=== PATIENT | male | born 1980 | race Caucasian/White ===

== ENCOUNTER 2020-02-10 12:59 | Observation (INO) | payer OTHER, SELFPAY ==
[2020-02-10 13:55] VITALS: BP 103/62; PULSE 96; RESP 18; TEMP 36.5; O2SAT 97; BMI 301.6
--- NOTE | 2020-02-10 14:08 | ED.ABDPAIN ---
HPI - Abdominal Pain General Chief Complaint: Abdominal Pain Stated Complaint: stomach pain and spine pain Time Seen by Provider: 02/10/20 14:08 Source: patient Mode of arrival: ambulatory Limitations: no limitations History of Present Illness MD elicited complaint: abdominal pain Pertinent past history: other (ran out of oxycodone 2 weeks ago was on high dose for arthritis and L foot injury) Onset (ago): day(s) Pain Consistency: constant Location: RUQ Severity: moderate Quality: sharp Radiation: RUQ Migration to: no migration Exacerbating factors: eating and movement Relieving factors: nothing Associated symptoms: nausea, diarrhea and chills Related Data Allergies Allergy/AdvReac Type Severity Reaction Status Date / Time fish derived [FISH] Allergy Severe ANAPHYLAXIS Verified 02/10/20 13:54 Penicillins [PENICILLINS] Allergy Unknown ANAPHYLAXIS Verified 02/10/20 13:54 Review of Systems Review of Systems Constitutional : No Weight loss, No Fever, + Chills, positive myalgias ENT/Mouth : No sore throat, No Rhinorrhea Eyes: No Swelling, No Redness Cardiovascular : No Chest Pain, No SOB, NoEdema Respiratory : No Cough, No Sputum, No Wheezing Gastrointestinal : Positive Nausea, no Vomiting, positive Diarrhea, positive abdominal Pain, No Hematochezia, No Melena Genitourinary : No Dysuria, No Urinary Frequency, No Hematuria, No Urgency Musculoskeletal : No joint pain, No Myalgias, No Joint Swelling Skin : No Skin Lesions, No rash Neuro : No Weakness, No Numbness, No Dizziness, No Headache Psych : No Anxiety/Panic, No Depression Heme/Lymph: No Bruising, No Lymphadenopathy Endocrine : No Polyuria, No Polydipsia All other systems reviewed and are negative. Physical Exam Vital Signs and I&O and Narrative: Vital Signs and I&O: Vital Signs Temp 97.6 F 02/10/20 16:00 Pulse 84 02/10/20 16:00 Resp 16 02/10/20 16:00 BP 134/64 02/10/20 16:00 Pulse Ox 99 02/10/20 16:00 Intake & Output 02/09/20 02/10/20 02/10/20 18:59 06:59 18:59 Weight 1124 kg Body Mass Index 301.6 Appearance: Alert. Oriented X3. No acute distress. Eyes: Pupils equal, round and reactive to light. ENT: Pharynx dry mm Neck: Normal inspection. mild spasm R trapezius CVS: Normal heart rate and rhythm. Pulses normal. Respiratory: No respiratory distress. Breath sounds normal. Abdomen: Soft and moderate RUQ ttp + Higgins's Skin: Skin warm and dry. Normal skin color. Normal skin turgor. Extremities: No lower extremity edema. No lower extremity edema. Neuro: Oriented X 3. No motor deficit. No sensory deficit. Course Course Course Narrative: + appendicits, added on flagyl cultures and lactic acid had been ordered, infection suspected at 425pm, repeat IVF ordered, plan to admit after discussion with Dr. Jones MDM - Abdominal Pain MDM Narrative Medical decision making narrative: patient c/o 3 days of worsening body pain, neck pain that is chronic and ran out of oxycodone 20mg BID 2 weeks ago didn't touch base with his doctor, also c/o RUQ pain with diarrhea - will need labs, CT scan for GB and pancreas, IV morphine this could be withdrawal, dispo per results and findings Lab Data Result diagrams: 02/10/20 14:40 02/10/20 14:40 Labs: Lab Results 02/10/20 02/10/20 02/10/20 Range/Units 14:40 14:40 14:40 WBC 19.0 H (4.8-10.8) X10*3/uL RBC 5.08 (4.60-5.80) X10*6/uL Hgb 15.1 (14.0-18.0) g/dl Hct 44.9 (42-52) % MCV 88.4 (80-98) fL MCH 29.7 (27.0-33.0) pg MCHC 33.6 (31.0-36.0) g/dl RDW 13.2 (11.0-16.0) % Plt Count 280 (160-400) X10*3/uL MPV 11.2 (9.4-12.4) fL Immature Gran % (Auto) 0.6 H (0.0-0.4) % Neut % (Auto) 71.9 (45-73) % Lymph % (Auto) 17.3 L (20-40) % [place] % (Auto) 7.5 (2-11) % Eos % (Auto) 2.2 (0-4) % Baso % (Auto) 0.5 (0-2) % Neut # (Auto) 13.7 H (2.0-8.3) X10*3/uL Lymph # (Auto) 3.3 (1.2-4.9) X10*3/uL [place] # (Auto) 1.4 H (0.1-1.2) X10*3/uL Eos # (Auto) 0.4 (0.0-0.4) X10*3/uL Baso # (Auto) 0.1 (0.0-0.2) X10*3/uL Abs Immat Gran (auto) 0.12 H (0.00-0.03) X10*3/uL Absolute Nucleated RBC 0.000 (0.0-0.012) X10*3/uL Nucleated RBC % (auto) 0.0 (0.0-0.2) /100WBC Hold Blue Top SEE NOTE Sodium 139 (135-145) mmol/L Potassium 4.2 (3.3-5.1) mmol/l Chloride 104 (96-108) mmol/L Carbon Dioxide 27 (22-29) mmol/L Anion Gap 12 (12-20) BUN 10 (9-16) mg/dL Creatinine 0.89 (0.5-1.4) mg/dL Estim Creat Clear Calc 798.5 Estimated GFR > 60 Random Glucose 92 (60-115) mg/dL Calcium 9.1 (8.4-10.2) mg/dL Magnesium 2.0 (1.6-2.6) mg/dL Total Bilirubin 0.6 (0.0-1.0) mg/dL Direct Bilirubin 0.2 (0.0-0.5) mg/dL AST 18 (5-37) U/L ALT 38 (0-40) U/L Alkaline Phosphatase 95 (39-117) U/L Total Protein 7.0 (6.5-8.0) g/dL Albumin 4.5 (3.5-5.0) g/dL Lipase 7 L (8-78) U/L Critical Care Time Critical Care Time Critical Care Time: Yes Total Critical Care Time: 30 Attestation: I personally attest to this time spent taking care of the patient Discharge Plan Discharge Clinical Impression: Abdominal pain Qualifiers: Abdominal location: periumbilical Qualified Code(s): R10.33 - Periumbilical pain Acute appendicitis Qualifiers: Acute appendicitis type: other Qualified Code(s): K35.890 - Other acute appendicitis without perforation or gangrene Leukocytosis Qualifiers: Leukocytosis type: other Qualified Code(s): D72.828 - Other elevated white blood cell count PMFSH Past Medical History Medical History Arthritis Chronic pain Hyperlipidemia Hypertension Sleep disorder Tachycardia Social History Social History (Updated 02/10/20 @ 14:21 by Jhoana Morales DO) Smoking Status: Never smoker Use of substances other than those prescribed or required for medical reasons: No Advance Directives: No Advance Directives Information Provided: Yes
--- NOTE | 2020-02-10 14:18 | CT_ITS ---
EXAMINATION: CT ABDOMEN AND PELVIS WITH CONTRAST CLINICAL INFORMATION: Right upper quadrant pain COMPARISON: None TECHNIQUE: Multidetector volumetric images were obtained from the superior aspect of the liver through the pubic symphysis following administration 85 mL of Omnipaque 350 intravenous contrast. Sagittal and coronal reformatted images were obtained on the technologist's workstation. Oral contrast: No This CT examination was performed using dose optimization techniques as appropriate, variously including the following: *Automated exposure control *Adjustment of mA and/or kV according to patient size (this includes techniques or standardized protocols for targeted exams where dose is matched to indication/reason for exam; i.e. extremities or head) *Use of iterative reconstruction technique DLP: 819 mGy-cm FINDINGS: LUNG BASES: The visualized lung bases are unremarkable. LIVER, GALLBLADDER, AND BILIARY TREE: Diffuse low attenuation of liver parenchyma due to fatty change. No focal liver lesion or intrahepatic bile duct dilatation. The gallbladder is unremarkable with no evidence of radiopaque gallstones, gallbladder wall thickening, or obvious pericholecystic inflammatory changes. PANCREAS: Unremarkable. SPLEEN: Unremarkable. ADRENAL GLANDS: Unremarkable. KIDNEYS AND URETERS: Kidneys are normal in size and contour with normal cortical thickness. Normal enhancement of the cortex. No renal or ureteral calculus. There is no hydronephrosis BLADDER: Unremarkable. GASTROINTESTINAL TRACT: There is focal edema and fluid in the right lower quadrant adjacent to cecum. The appendix is dilated and edematous. Appendix measures 1 cm in diameter. This is consistent with appendicitis. There is no perforation or abscess however. There is no free air. No dilated bowel loop. Scattered stool in the colon. The small bowel loops are normal. ABDOMINAL WALL: No significant hernia is appreciated. LYMPH NODES: Normal. VASCULAR: Unremarkable. PELVIC VISCERA: Unremarkable. OSSEOUS STRUCTURES: Unremarkable. IMPRESSION: Appendicitis.
[2020-02-10] MEDS: ondansetron HCL 4 MG/2 ML VIAL IVPUSH (14:44)
[2020-02-10] MEDS: Morphine Sulfate 4 MG/ML CARTRIDGE IVPUSH (14:44)
[2020-02-10] MEDS: 0.9 % Sodium Chloride 1,000 ML 999 ML IVCONT ×2 (14:44→17:08)
[2020-02-10 14:51] LABS: MANUAL DIFF FLAG NO
[2020-02-10 14:54] LABS: Basophils Absolute Auto 0.1 X10*3/uL (0.0-0.2); Basophils Percent Auto 0.5 % (0-2); Eosinophils Absolute Auto 0.4 X10*3/uL (0.0-0.4); Eosinophils Percent Auto 2.2 % (0-4); Hematocrit 44.9 % (42-52); Hemoglobin 15.1 g/dl (14.0-18.0); Imm Gran Abs Auto 0.12 X10*3/uL (0.00-0.03); Imm Gran Pct Auto 0.6 % (0.0-0.4); Lymphocytes Absolute Auto 3.3 X10*3/uL (1.2-4.9); Lymphocytes Percent Auto 17.3 % (20-40); Mean Corpuscular HGB Conc 33.6 g/dl (31.0-36.0); Mean Corpuscular Hemoglobin 29.7 pg (27.0-33.0); Mean Corpuscular Volume 88.4 fL (80-98); Mean Platelet Volume 11.2 fL (9.4-12.4); Monocytes Absolute Auto 1.4 X10*3/uL (0.1-1.2); Monocytes Percent Auto 7.5 % (2-11); Neutrophils Absolute Auto 13.7 X10*3/uL (2.0-8.3); Neutrophils Percent Auto 71.9 % (45-73); Platelet Count 280 X10*3/uL (160-400); Red Blood Count 5.08 X10*6/uL (4.60-5.80); Red Cell Distribution Width 13.2 % (11.0-16.0)
[2020-02-10 15:26] LABS: Alanine Aminotransferase 38 U/L (0-40); Albumin Level 4.5 g/dL (3.5-5.0); Alkaline Phosphatase 95 U/L (39-117); Anion Gap 12 (12-20); Aspartate Amino Transferase 18 U/L (5-37); Bilirubin Direct 0.2 mg/dL (0.0-0.5); Bilirubin Total 0.6 mg/dL (0.0-1.0); Blood Urea Nitrogen 10 mg/dL (9-16); Calcium 9.1 mg/dL (8.4-10.2); Carbon Dioxide 27 mmol/L (22-29); Chloride 104 mmol/L (96-108); Creatinine Clr Calc Pharmacy 798.5; Estimated Glomerular Filt Rate > 60; Glucose Random 92 mg/dL (60-115); Lipase 7 U/L (8-78); Potassium 4.2 mmol/l (3.3-5.1); Sodium 139 mmol/L (135-145)
[2020-02-10 15:33] VITALS: BP 128/74; PULSE 82; RESP 16; O2SAT 98
[2020-02-10] MEDS: iohexoL 350 MG/ML 100 ML INFUS..BTL IV (15:56)
[2020-02-10 16:00] VITALS: BP 134/64; PULSE 84; RESP 16; TEMP 36.4; O2SAT 99
--- NOTE | 2020-02-10 17:05 | PM.HPGS ---
History of Present Illness History of Present Illness Chief complaint: stomach pain and spine pain Narrative: Quinn Valerio is a 39 year old male Presenting with a three day history of abdominal pain beginning in the back and epigastrium and gradually radiating to the right upper quadrant and right lower quadrant. The pain increased in severity and he subsequently presented to the emergency department for further evaluation. He denies a previous history of similar pain. He reports nausea without vomiting. He also felt hot but is unsure if he had a fever. He denies chills. In the emergency department he was noted to be tender in the right upper quadrant and right lower quadrant. Laboratories revealed a markedly elevated WBC. CT of the abdomen and pelvis revealed a thickened appendix suggestive of acute appendicitis. He is admitted to the surgical service for further management. He reports a previous history of tachycardia with bradycardia with sleep. He was previously told he should not undergo anesthesia because of this bradycardia while as sleep. Review of Systems Constitutional: Constitutional: Denies chills, Denies fever(s) and Denies poor appetite Cardiovascular: Cardiovascular: Denies chest pain, Denies rapid heart rate, Denies palpitations and Denies slow heart rate Respiratory: Respiratory: Denies chest congestion, Denies cough, Denies pain on inspiration and Denies wheezing Gastrointestinal: Gastrointestinal: Denies no additional gastrointestinal complaints Musculoskeletal: Musculoskeletal: Denies no additional musculoskeletal complaints Neurologic: Denies confusion Psychiatric: Psychiatric: Denies anxiety, Denies confusion and Denies depression Endocrine: Endocrine: Denies palpitations Hematologic/Lymphatic: Hematologic/Lymphatic: Denies easy bleeding, Denies easy bruising and Denies lymphadenopathy Allergic/Immunologic: Allergic/Immunologic: Denies wheezing PMFSH Past Medical History Medical History Arthritis Chronic pain Hyperlipidemia Hypertension Sleep disorder Tachycardia Social History Social History Smoking Status: Never smoker Use of substances other than those prescribed or required for medical reasons: No Advance Directives: No Advance Directives Information Provided: Yes Meds Allergies Allergy/AdvReac Type Severity Reaction Status Date / Time fish derived [FISH] Allergy Severe ANAPHYLAXIS Verified 02/10/20 13:54 Penicillins [PENICILLINS] Allergy Unknown ANAPHYLAXIS Verified 02/10/20 13:54 Home Medications Medication Instructions Recorded Confirmed Type allopurinol 100 mg PO DAILY 02/10/20 02/10/20 History atorvastatin 1 tab PO BEDTIME 02/10/20 02/10/20 History citalopram 1 tab PO DAILY 02/10/20 02/10/20 History Physical Exam Vital Signs and I&O and Narrative: Vital Signs and I&O: Vital Signs Temp 97.6 F 02/10/20 16:00 Pulse 84 02/10/20 16:00 Resp 16 02/10/20 16:00 BP 134/64 02/10/20 16:00 Pulse Ox 99 02/10/20 16:00 Intake & Output 02/09/20 02/10/20 02/10/20 18:59 06:59 18:59 Weight 2477 lb 15.931 oz Body Mass Index 301.6 Const: General: cooperative, healthy appearing and acute distress; No confusion Orientation/consciousness: No confusion Eyes: Sclerae: sclerae normal EOM: EOMs intact bilaterally Resp: Effort & Inspection: normal respiratory effort Auscultation: clear to auscultation bilaterally Cardio: Jugular venous distension: no JVD Rate: regular rate Rhythm: regular rhythm Heart sounds: S1 normal heart sound present and S2 normal heart sound present GI: Inspection: Yes normal to inspection Palpation (GI): Soft to palpation, Tenderness to palpation present (GI) in the RLQ and in the RUQ, no guarding and not rigid Percussion: Yes normal to percussion Auscultation: normal bowel sounds Rectal Exam - Male: Yes deferred Abdomen image: 1. site of tenderness Skin: General skin exam: no rashes or lesions noted and turgor normal Neuro: General: No confusion Gait exam (Neuro): Normal gait present Extrem: General: Yes normal to inspection, Yes full ROM and Yes no pedal edema Psych: Speech and movement: Normal speech and movement present Affect: normal affect Results Results Labs: Short CBC 02/10/20 Range/Units 14:40 WBC 19.0 H (4.8-10.8) X10*3/uL Hgb 15.1 (14.0-18.0) g/dl Hct 44.9 (42-52) % Plt Count 280 (160-400) X10*3/uL BMP 02/10/20 14:40 Sodium 139 Potassium 4.2 Chloride 104 Carbon Dioxide 27 BUN 10 Creatinine 0.89 Calcium 9.1 Liver Function 02/10/20 Range/Units 14:40 Total Bilirubin 0.6 (0.0-1.0) mg/dL Direct Bilirubin 0.2 (0.0-0.5) mg/dL AST 18 (5-37) U/L ALT 38 (0-40) U/L Alkaline Phosphatase 95 (39-117) U/L Albumin 4.5 (3.5-5.0) g/dL Assessment and Plan (1) Acute appendicitis: Qualifiers: Acute appendicitis type: other Qualified Code(s): K35.890 - Other acute appendicitis without perforation or gangrene Status: Acute Patient presents with complaints of abdominal pain in the right upper quadrant right lower quadrant of several days duration. On examination he is noted to be tender over McBurney's point. Abdomen is otherwise soft and nondistended. He does not have peritoneal signs. WBC is markedly elevated and CT of the abdomen confirms acute appendicitis. I discussed laparoscopic appendectomy verses treatment with antibiotics, with surgery if there is no improvement in his abdominal pain tomorrow. Given his previous history of tachycardia/bradycardia and the previous recommendations from his portable sawyer to avoid anesthesia I suggested try treating the appendicitis with antibiotics. He is agreeable to this but understands that if his pain persists surgery may be required.
[2020-02-10 17:07] LABS: Glucose Urine UA NEG (NEG); Leukocyte Esterase Urine NEG (NEG); Nitrite Urine NEG (NEG); PH 5.5 (5.0-8.0); Specific Gravity - Urine <= 1.005 (1.005-1.025); Urine Blood TRACE (NEG); Urine Ketones NEG (NEG); Urine Protein NEG (NEG-TRACE)
[2020-02-10] MEDS: levoFLOXacin/D5W 500 MG/100 ML PIGGYBACK 100 MG IV (17:08)
[2020-02-10 17:25] LABS: Appearance Urine CLEAR; Color Urine YELLOW
--- NOTE | 2020-02-10 17:36 | PC.NURSE ---
PT ALERT AND ORIENTED X4. SKIN WPD. RESPIRATIONS EVEN AND NON LABORED. OFFERED SECOND DOSE MORPHINE, BUT DECLINED STATING ABD PAIN IS MANAGEABLE AT THIS TIME. DENIES NAUSEA. NS AND 1ST ABX INFUSING. PLAN FOR APPEDNECTOMY DELAYED D/T HISTORY OF BRADYCARDIA, PER SURGERY. PT NOW MEDICAL ADMISSION. AWAITING BED ASSIGNMENT.
[2020-02-10 17:55] LABS: RBC Urine 0-2 /HPF (0); Squamous Epithelial Cell Urine TRACE /LPF; WBC Urine 0 /HPF (0-4)
[2020-02-10 19:02] VITALS: BP 129/81; PULSE 73; RESP 16; TEMP 37.1; O2SAT 99
[2020-02-10] MEDS: metroNIDAZOLE/NS 500 MG/100 ML PIGGYBACK 100 MG IV (19:08)
[2020-02-10 20:31] VITALS: BP 106/43; PULSE 73; RESP 15; O2SAT 98
[2020-02-10 22:00] VITALS: BP 120/83; PULSE 83; RESP 15; O2SAT 98
--- NOTE | 2020-02-10 22:53 | PC.NURSE ---
PATIENT AWAITING EVALUATION BY HOSITALIST
[2020-02-11] VITALS (7 sets, daily range): BP systolic 113–131; BP diastolic 60–77; PULSE 73–91; RESP 17–20; TEMP 36.3–37.3; O2SAT 95–99; BMI 30.2
[2020-02-11] MEDS: Atorvastatin Calcium 20 MG TABLET PO ×2 (00:54→20:09)
[2020-02-11] MEDS: Dextrose 5 % and Lactated Ring 1,000 ML 125 ML IVCONT ×3 (01:07→17:06)
[2020-02-11] MEDS: metroNIDAZOLE/NS 500 MG/100 ML PIGGYBACK 100 MG IV ×3 (03:24→18:17)
[2020-02-11 06:47] LABS: MANUAL DIFF FLAG NO
[2020-02-11 06:57] LABS: Basophils Absolute Auto 0.1 X10*3/uL (0.0-0.2); Basophils Percent Auto 0.4 % (0-2); Eosinophils Absolute Auto 0.4 X10*3/uL (0.0-0.4); Eosinophils Percent Auto 3.4 % (0-4); Hematocrit 41.8 % (42-52); Hemoglobin 13.6 g/dl (14.0-18.0); Imm Gran Abs Auto 0.11 X10*3/uL (0.00-0.03); Imm Gran Pct Auto 0.9 % (0.0-0.4); Lymphocytes Absolute Auto 2.7 X10*3/uL (1.2-4.9); Lymphocytes Percent Auto 22.7 % (20-40); Mean Corpuscular HGB Conc 32.5 g/dl (31.0-36.0); Mean Corpuscular Hemoglobin 29.4 pg (27.0-33.0); Mean Corpuscular Volume 90.3 fL (80-98); Mean Platelet Volume 11.3 fL (9.4-12.4); Monocytes Percent Auto 8.5 % (2-11); Neutrophils Absolute Auto 7.6 X10*3/uL (2.0-8.3); Neutrophils Percent Auto 64.1 % (45-73); Platelet Count 234 X10*3/uL (160-400); Red Blood Count 4.63 X10*6/uL (4.60-5.80); Red Cell Distribution Width 13.2 % (11.0-16.0); White Blood Count 11.9 X10*3/uL (4.8-10.8)
[2020-02-11] MEDS: allopurinoL 100 MG TABLET PO (09:12)
[2020-02-11] MEDS: Escitalopram Oxalate 10 MG TABLET PO (09:13)
--- NOTE | 2020-02-11 12:18 | PM.PNGS ---
Subjective Subjective Patient reports: feels better Interval history: Patient reports feeling very hungry and denying abdominal pain. He feels much improved this morning and denies fever or chills. Physical Exam Vital Signs and I&O and Narrative: Vital Signs and I&O: Vital Signs Temp 98.1 F 02/11/20 11:56 Pulse 88 02/11/20 11:56 Resp 18 02/11/20 11:56 BP 119/60 02/11/20 11:56 Pulse Ox 98 02/11/20 11:56 Intake & Output 02/10/20 02/11/20 02/11/20 18:59 06:59 18:59 Intake Total 2100 / 2300 200 / 2300 1098.333 / 1098.33 3 Balance 2100 / 2300 200 / 2300 1098.333 / 1098.33 3 Weight 2477 lb 15.931 oz 247 lb 15.933 oz Intake: Intake, IV Amoun t 2100 / 2300 200 / 2300 1098.333 / 1098.33 3 levoFLOXacin/D 5W 500 mg In 100 100 / 100 ml @ 100 mls/h r IV ONCE ONE Rx# :[id number] metroNIDAZOLE/ NS 500 mg In 100 200 / 200 98.333 / 98.333 ml @ 100 mls/h r IV Q8H [facility] Rx#: [id number] 0.9 % Sodium C hloride 1,000 ml 2000 / 2000 @ 999 mls/hr I VCONT .Q1H1M [facility] Rx#:[id number] Dextrose 5 % a nd Lactated Ring 1000 / 1000 1,000 ml @ 125 mls/hr IVCONT . Q8H [facility] Rx#:[id number] Other: Number of Unmeas ured Voids 2 Body Mass Index 301.6 Const: Other: Well-nourished well-developed in no acute distress Resp: Other: breathing comfortably on room air, no respiratory distress GI: Other: abdomen is soft and nondistended, nontender to deep palpation especially in the right lower quadrant, no rebound, no rigidity, no guarding, no palpable mass. Exam is much improved compared to yesterday. Skin: Other: Warm and dry, no rash Extrem: Other: no edema Progress Note: A&P Assessment and plan (1) Acute appendicitis: Status: Acute Assessment and Plan: patient presents with acute appendicitis and history of tachycardia /bradycardia. Because of this decision was made to treat patient with antibiotics. This morning the patient feels much improved with minimal to no abdominal pain. His white blood cell count is now improved to 11. he reports being very hungry. Plan: Continue IV antibiotics for another 24 hours and then potentially switch to oral antibiotics and discharge, start regular diet today, resume home medications. Will hold off on surgery as long as the patient is improving. The patient understands and agrees with the plan Fall Risk Details Current Medications: Current Medications Generic Name Dose Route Start Last Admin Trade Name Freq PRN Reason Stop Dose Admin Acetaminophen 650 mg 02/11/20 07:27 Acetaminophen 325 Mg Tablet PO Q6H PRN Pain and Fever Allopurinol 100 mg 02/11/20 09:00 02/11/20 09:12 Allopurinol 100 Mg Tablet PO 100 mg DAILY [facility] Administration Atorvastatin Calcium 20 mg 02/11/20 00:14 02/11/20 00:54 Atorvastatin Calcium 20 Mg Tablet PO 20 mg BEDTIME [facility] Administration Escitalopram Oxalate 10 mg 02/11/20 09:00 02/11/20 09:13 Escitalopram Oxalate 10 Mg Tablet PO 10 mg DAILY [facility] Administration Levofloxacin 500 mg in 100 mls @ 100 mls/hr 02/11/20 17:00 Levaquin IV Q24H [facility] Metronidazole 500 mg in 100 mls @ 100 mls/hr 02/11/20 03:00 02/11/20 11:53 Flagyl IV Infused Q8H [facility] Infusion Dextrose/Lactated Ringer's 1,000 mls @ 125 mls/hr 02/11/20 00:14 02/11/20 09:14 D5lr IVCONT 125 mls/hr .Q8H [facility] Administration Morphine Sulfate 4 mg 02/11/20 07:27 Morphine Sulfate 4 Mg/Ml Cartridge IVPUSH Q3H PRN Pain, Severe (Pain Scale 7-10) Ondansetron HCl 4 mg 02/11/20 07:27 Ondansetron Hcl 4 Mg/2 Ml Vial IVPUSH Q8H PRN Nausea Oxycodone HCl 5 mg 02/11/20 07:30 Oxycodone Hcl Immed Release 5 Mg Tablet PO Q4H PRN Pain, Moderate (Pain Scale 4-6 Pharmacy Consult 1 each 02/10/20 16:28 Consult Rx Perform Med Rec MISCELLANE ONCE PRN Consult order Time Spent With Patient Time: Total time spent is greater than 50% in coordination of care (as documented) at patient's floor/unit and/or counseling patient:15 Time with patient: 15 - 24 minutes
--- NOTE | 2020-02-11 13:34 | MHC.CM.PN ---
Lives at home with girlfriend and 3 year old daughter, independent with everything, no services, no DME, states has HCP, copy requested, PCP on file accurate. Plan is home via GF. CM to follow.
[2020-02-11] MEDS: levoFLOXacin/D5W 500 MG/100 ML PIGGYBACK 100 MG IV (16:52)
--- NOTE | 2020-02-11 23:00 | PC.NURSE ---
pt is refusing high fall risk status. Pt is stating that he is not in a detention. Pt is being monitored closely, but is moving out of bed freely, mostly to bathroom
[2020-02-12] VITALS: BP 131/70; PULSE 70; RESP 16; TEMP 36.6; O2SAT 98
[2020-02-12] MEDS: metroNIDAZOLE/NS 500 MG/100 ML PIGGYBACK 100 MG IV (02:20)
[2020-02-12] MEDS: Dextrose 5 % and Lactated Ring 1,000 ML 125 ML IVCONT (02:20)
[2020-02-12 03:37] VITALS: BP 128/82; PULSE 69; RESP 20; TEMP 35.8; O2SAT 97
[2020-02-12 06:55] LABS: Hematocrit 42.4 % (42-52); Hemoglobin 13.9 g/dl (14.0-18.0); Mean Corpuscular HGB Conc 32.8 g/dl (31.0-36.0); Mean Corpuscular Hemoglobin 29.3 pg (27.0-33.0); Mean Corpuscular Volume 89.5 fL (80-98); Mean Platelet Volume 11.1 fL (9.4-12.4); Platelet Count 250 X10*3/uL (160-400); Red Blood Count 4.74 X10*6/uL (4.60-5.80); Red Cell Distribution Width 12.6 % (11.0-16.0); White Blood Count 10.7 X10*3/uL (4.8-10.8)
[2020-02-12 07:34] VITALS: BP 133/73; PULSE 63; RESP 19; TEMP 36.2; O2SAT 98
--- NOTE | 2020-02-12 07:37 | P.PNGS_ITS ---
Subjective Subjective Interval history: Feels well this morning. Denies any abdominal pain. Tolerating solid diet. Denies nausea, vomiting. Wants to go home. <Ashia George PA-C - Last Filed: 02/12/20 07:44> Physical Exam Vital Signs and I&O and Narrative: Vital Signs and I&O: Vital Signs Temp 97.1 F 02/12/20 07:34 Pulse 63 02/12/20 07:34 Resp 19 02/12/20 07:34 BP 133/73 02/12/20 07:34 Pulse Ox 98 02/12/20 07:34 Intake & Output 02/11/20 02/12/20 02/12/20 18:59 06:59 18:59 Intake Total 3501.666 / 5181.66 6 1680 / 5181.666 Output Total Balance 3493.666 / 5165.66 6 1672 / 5165.666 Urine Output (Aver age ml/kg/hr) 0.00 0.01 Weight 247 lb 15.933 oz Intake: Intake, Oral [place] unt 1320 / 1800 480 / 1800 Intake, IV Amoun t 2181.666 / 3381.66 6 1200 / 3381.666 levoFLOXacin/D 5W 500 mg In 100 100 / 100 ml @ 100 mls/h r IV Q24H [facility] Rx# :[id number] metroNIDAZOLE/ NS 500 mg In 100 98.333 / 298.333 200 / 298.333 ml @ 100 mls/h r IV Q8H [facility] Rx#: [id number] Dextrose 5 % a nd Lactated Ring 1983.333 / 2983.33 3 1000 / 2983.333 1,000 ml @ 125 mls/hr IVCONT . Q8H [facility] Rx#:[id number] Output: Output, Urine Am ount 6 14 8 14 Output, Stool Am ount 2 / 2 Other: Meal Refused No NPO No Breakfast % Eate n 100% Lunch % Eaten 100% Dinner % Eaten 100% Number of Unmeas ured Voids 1 Number of Bowel Movements 2 3 Urine Bathroom Bathroom Urine Color Yellow Yellow Stool Bathroom Stool Color Brown Stool Consistenc y Semi Formed Body Mass Index 30.2 <Ashia George PA-C - Last Filed: 02/12/20 07:44> Const: General: comfortable, no acute distress and alert <Ashia Friashalima IFEOMA Gu Last Filed: 02/12/20 07:44> Orientation/consciousness: patient oriented x3 <Ashia FriasdeauSHANIKAArely Gu Last Filed: 02/12/20 07:44> Eyes: Sclerae: sclerae normal <Ashia FriasSHANIKA vargheseArely Gu Last Filed: 02/12/20 07:44> Resp: Effort & Inspection: normal respiratory effort <Ashia Friasdeau IFEOMA Gu Last Filed: 02/12/20 07:44> Cardio: Rate: regular rate <Ashia Friasdeau IFEOMA Gu Last Filed: 02/12/20 07:44> GI: Inspection: Yes normal to inspection and No distended <Ashia Friashalima IFEOMA Gu Last Filed: 02/12/20 07:44> Palpation (GI): Soft to palpation, nontender, no guarding and No Rebound ten derness present <Ashia Friasdeau IFEOMA Gu Last Filed: 02/12/20 07:44> Auscultation: normal bowel sounds <Ashia Friashalima IFEOMA Gu Last Filed: 02/12/20 07:44> Skin: General skin exam: no rashes or lesions noted <Ashia Ortegajaron IFEOMA Gu Last Filed: 02/12/20 07:44> Neuro: General: patient oriented x3 <Ashia OrtegaSHANIKA salmeronArely Gu Last Filed: 02/12/20 07:44> Extrem: General: Yes no clubbing, cyanosis or edema <Ashia OrtegaSHANIKA salmeronArely Gu Last Filed: 02/12/20 07:44> Progress Note: A&P Assessment and plan (1) Acute appendicitis: Status: Acute <Ashia OrtegaSHANIKA salmeronArely Gu Last Filed: 02/12/20 07:44> Assessment and Plan: Improved with nonoperative management. He is clinically appearing well, afebrile with a benign abdominal exam, soft and completely nontender. He is stable and feels ready for discharge. Will d/c to home today on PO course of levaquin/flagyl. F/u in office with Dr. Jones. Instructed to call the office/return to the ED if develops recurrent abd pain, fevers, nausea/vomiting. The patient understands and agrees with the plan. <Ashia George PA-C - Last Filed: 02/12/20 07:44> Fall Risk Details Current Medications: Current Medications Generic Name Dose Route Start Last Admin Trade Name Freq PRN Reason Stop Dose Admin Acetaminophen 650 mg 02/11/20 07:27 Acetaminophen 325 Mg Tablet PO Q6H PRN Pain and Fever Allopurinol 100 mg 02/11/20 09:00 02/11/20 09:12 Allopurinol 100 Mg Tablet PO 100 mg DAILY [facility] Administration Atorvastatin Calcium 20 mg 02/11/20 00:14 02/11/20 20:09 Atorvastatin Calcium 20 Mg Tablet PO 20 mg BEDTIME [facility] Administration Escitalopram Oxalate 10 mg 02/11/20 09:00 02/11/20 09:13 Escitalopram Oxalate 10 Mg Tablet PO 10 mg DAILY [facility] Administration Levofloxacin 500 mg in 100 mls @ 100 mls/hr 02/11/20 17:00 02/11/20 18:23 Levaquin IV Infused Q24H [facility] Infusion Metronidazole 500 mg in 100 mls @ 100 mls/hr 02/11/20 03:00 02/12/20 03:39 Flagyl IV Infused Q8H [facility] Infusion Dextrose/Lactated Ringer's 1,000 mls @ 125 mls/hr 02/11/20 00:14 02/12/20 02:20 D5lr IVCONT 125 mls/hr .Q8H [facility] Administration Morphine Sulfate 4 mg 02/11/20 07:27 Morphine Sulfate 4 Mg/Ml Cartridge IVPUSH Q3H PRN Pain, Severe (Pain Scale 7-10) Ondansetron HCl 4 mg 02/11/20 07:27 Ondansetron Hcl 4 Mg/2 Ml Vial IVPUSH Q8H PRN Nausea Oxycodone HCl 5 mg 02/11/20 07:30 Oxycodone Hcl Immed Release 5 Mg Tablet PO Q4H PRN Pain, Moderate (Pain Scale 4-6 Pharmacy Consult 1 each 02/10/20 16:28 Consult Rx Perform Med Rec MISCELLANE ONCE PRN Consult order <Ashia George PA-C - Last Filed: 02/12/20 07:44> Time Spent With Patient Time: Total time spent is greater than 50% in coordination of care (as documented) at patient's floor/unit and/or counseling patient: <Ashia George PA-C - Last Filed: 02/12/20 07:44> Time with patient: 15 - 24 minutes <Ashia George PA-C - Last Filed: 02/12/20 07:44>
[2020-02-12] MEDS: Escitalopram Oxalate 10 MG TABLET PO (07:55)
[2020-02-12] MEDS: allopurinoL 100 MG TABLET PO (07:55)
--- NOTE | 2020-02-12 08:41 | MHC.CM.PN ---
PATIENT IS DISCHARGED HOME WITH NO SERVICES. RN AWARE OF PLAN. PATIENT HAS TRANSPORT
--- NOTE | 2020-02-12 09:03 | P.DS_ITS ---
DS: Providers Provider Date of admission: 02/10/20 23:54 Primary care physician: Favian Lomeli MD DS: Diagnosis Discharge Diagnosis (1) Acute appendicitis: Status: Acute DS: Summary Hospital Course Hospital Course: Brief HPI: Quinn Valerio is a 39 year old male presenting with a three day history of abdominal pain beginning in the back and epigastrium and gradually radiating to the right upper quadrant and right lower quadrant. The pain increased in severity and he subsequently presented to the emergency department for further evaluation. He denies a previous history of similar pain. He reports nausea without vomiting. He also felt hot but is unsure if he had a fever. He denies chills. In the emergency department he was noted to be tender in the right upper quadrant and right lower quadrant. Laboratories revealed a markedly elevated WBC. CT of the abdomen and pelvis revealed a thickened appendix suggestive of acute appendicitis. He reports a previous history of tachycardia with bradycardia with sleep. He was previously told he should not undergo anesthesia because of this. He is admitted to the surgical service for further management. Given the patient's history, nonoperative management was attempted overnight. He was made NPO, started on IV levaquin and flagyl, IVF. If no improvement, surgical intervention would be required. The following morning, the patient felt improved and was asymptomatic. His WBC had significantly downtrended. His abdomen was benign with minimal tenderness. He was afebrile. He was advanced to a clear liquid and then regular diet. He continued to feel well and remained non toxic appearing the following day. His WBC normalized. His abdomen remained very benign and was completely nontender. He felt ready for discharge. He was discharged to home on 02/12/20 in stable condition on a PO course of levaquin/flagyl. He is to follow up with Dr. Jones in office. Status at Discharge Functional status at discharge: independent ambulation Overall status at discharge: patient is back to baseline Time Spent with Patient Time attestation: Total time spent providing and/or coordinating discharge services: Time spent: Less than 30 minutes Physical Exam Vital Signs and I&O and Narrative: Vital Signs and I&O: Vital Signs Temp 97.1 F 02/12/20 07:34 Pulse 63 02/12/20 07:34 Resp 19 02/12/20 07:34 BP 133/73 02/12/20 07:34 Pulse Ox 98 02/12/20 07:34 Intake & Output 02/11/20 02/12/20 02/12/20 18:59 06:59 18:59 Intake Total 3501.666 / 5181.66 6 1680 / 5181.666 Output Total Balance 3493.666 / 5165.66 6 1672 / 5165.666 Urine Output (Aver age ml/kg/hr) 0.00 0.01 Weight 247 lb 15.933 oz Intake: Intake, Oral [place] unt 1320 / 1800 480 / 1800 Intake, IV Amoun t 2181.666 / 3381.66 6 1200 / 3381.666 levoFLOXacin/D 5W 500 mg In 100 100 / 100 ml @ 100 mls/h r IV Q24H [facility] Rx# :[id number] metroNIDAZOLE/ NS 500 mg In 100 98.333 / 298.333 200 / 298.333 ml @ 100 mls/h r IV Q8H [facility] Rx#: [id number] Dextrose 5 % a nd Lactated Ring 1983.333 / 2983.33 3 1000 / 2983.333 1,000 ml @ 125 mls/hr IVCONT . Q8H [facility] Rx#:[id number] Output: Output, Urine Am ount Output, Stool Am ount 2 / 2 Other: Meal Refused No NPO No Breakfast % Eate n 100% Lunch % Eaten 100% Dinner % Eaten 100% Number of Unmeas ured Voids 1 Number of Bowel Movements 2 3 Urine Bathroom Bathroom Urine Color Yellow Yellow Stool Bathroom Stool Color Brown Stool Consistenc y Semi Formed Body Mass Index 30.2 Const: General: healthy appearing, comfortable, no acute distress and alert Orientation/consciousness: patient oriented x3 Eyes: Sclerae: sclerae normal Resp: Effort & Inspection: normal respiratory effort Cardio: Rate: regular rate GI: Inspection: Yes normal to inspection and No distended Palpation (GI): Soft to palpation, nontender, no guarding, not rigid and No Rebound tenderness present Skin: General skin exam: no rashes or lesions noted Neuro: General: patient oriented x3 Extrem: General: Yes no clubbing, cyanosis or edema DS: Data Data Completed and Pending Labs on day of discharge: Labs from last 24 hours 02/12/20 06:23 WBC 10.7 RBC 4.74 Hgb 13.9 L Hct 42.4 MCV 89.5 MCH 29.3 MCHC 32.8 RDW 12.6 Plt Count 250 MPV 11.1 Absolute Nucleated RBC 0.000 Nucleated RBC % (auto) 0.0 Preliminary micro results at discharge 02/10/20 16:23 Blood Culture - Preliminary Blood - Venous No growth after 24 hours. 02/10/20 16:19 Blood Culture - Preliminary Blood - Venous No growth after 24 hours. Discharge Plan Discharge Patient Disposition: Home, Self-Care Referrals: Jae Jones MD [Physician] - 1 Week Favian Lomeli MD [Primary Care Provider] - Discharge Medications: New levofloxacin 500 mg tablet 500 mg PO Q24H Qty: 9 RF: 0 metronidazole [Flagyl] 500 mg tablet 500 mg PO Q12H Qty: 18 RF: 0 Continued atorvastatin 20 mg tablet 20 mg PO BEDTIME RF: 0 allopurinol 100 mg tablet 100 mg PO DAILY RF: 0 citalopram 20 mg tablet 20 mg PO DAILY RF: 0 metoprolol succinate 25 mg Tablet Extended Release 24 Hr 25 mg PO DAILY RF: 0 oxycodone 10 mg Tablet 10 mg PO DAILY PRN (Reason: Pain) RF: 0 Discharge Orders: Discharge Order (Routine); Ordered 02/12/20 Ordered By: Ashia George Diet: advance to your usual diet Activity on Discharge: As tolerated Patient Instructions: Metronidazole (By mouth), Levofloxacin (By mouth) Discharge Date/Time: 02/12/20 09:05 Activity Restrictions/Additional Instructions: Call the office or go back to the ED if you develop recurrent abdominal pain, nausea/vomiting, fevers. Visit Report Forms: Patient Portal Discharge page Care Plan Goals: Return to baseline health Health Concerns: ACute appendicitis Plan of Treatment: IV antibiotics, pain control
== END 2020-02-12 09:05 | disposition home or self-care (01) ==
LOC: HO.ED 02-11 00:01 → HO.S3 02-11 00:03
PROVIDERS: Admitting Provider Surgery; Emergency Provider Emergency Medicine; PCP Internal Medicine; Visit Provider Surgery
DX: K35.890 Other acute appendicitis without perforation or gangrene (principal); R10.11 Right upper quadrant pain; R00.0 Tachycardia, unspecified; R00.1 Bradycardia, unspecified; M54.9 Dorsalgia, unspecified; R11.0 Nausea; R19.7 Diarrhea, unspecified; D72.828 Other elevated white blood cell count; E78.5 Hyperlipidemia, unspecified; I10 Essential (primary) hypertension; G47.9 Sleep disorder, unspecified; M19.90 Unspecified osteoarthritis, unspecified site; Z88.0 Allergy status to penicillin; Z91.013 Allergy to seafood; Z79.899 Other long term (current) drug therapy
CPT/HCPCS: 36415; 74177; 80048; 80076; 81001; 81003; 83605; 83690; 83735; 85025; 85027; 87040; 96361; 96365; 96367; 96375; 96376; 99218; 99284; 99285; 99291; J0330; J1100; J1956; J2250; J2270; J2405; J3010

== ENCOUNTER 2020-08-02 15:24 | Outpatient (REF) | payer OTHER, SELFPAY ==
[2020-08-03 11:15] LABS: SARS COV2 PCR INHOUSE NEGATIVE (Negative)
== END 2020-08-02 15:25 | disposition home or self-care (01) ==
LOC: HO.LAB 15:24
PROVIDERS: Visit Provider Internal Medicine
DX: Z20.822 Contact with and (suspected) exposure to COVID-19 (principal)
CPT/HCPCS: C9803; U0003

== ENCOUNTER 2020-08-17 16:58 | Emergency (ER) | payer OTHER, SELFPAY | END 2020-08-17 18:59 | disposition left against medical advice (07) | PROVIDERS: Emergency Provider Emergency Medicine; PCP Internal Medicine | DX: R09.81 Nasal congestion (principal) ==

== ENCOUNTER 2025-01-01 07:03 | Emergency (ER) | payer OTHER, SELFPAY ==
--- NOTE | ~2025-01-01 | XR_ITS ---
EXAMINATION: XR FOOT 3 OR MORE VIEWS LEFT HISTORY: painful COMPARISON: There are no prior studies available for comparison. FINDINGS: Three views of the left foot are submitted. Osseous mineralization is normal. There is no fracture or dislocation. The joint spaces are preserved. The soft tissues are unremarkable. XR/XR foot LT min 3V IMPRESSION: Unremarkable examination of the left foot. Electronically signed by: Oliver Rudd MD 01/01/2025 08:04 AM EDT
[2025-01-01 07:08] VITALS: BP 143/68; PULSE 93; RESP 16; TEMP 37; O2SAT 97; BMI 30.4
[2025-01-01] MEDS: oxyCODONE HCl Immed Release 5 MG TABLET PO (07:54)
[2025-01-01 08:07] LABS: MANUAL DIFF FLAG NO
[2025-01-01 08:09] LABS: Hematocrit 43.2 % (42.0-52.0); Hemoglobin 14.6 g/dl (14.0-18.0); Imm Gran Abs Auto 0.09 X10*3/uL (0.00-0.03); Imm Gran Pct Auto 0.6 % (0.0-0.4); Lymphocytes Absolute Auto 3.5 X10*3/uL (1.2-4.9); Mean Corpuscular HGB Conc 33.8 g/dl (31.0-36.0); Mean Corpuscular Hemoglobin 29.4 pg (27.0-33.0); Mean Corpuscular Volume 87.1 fL (80.0-98.0); NRBC Abs Auto 0.000 X10*3/uL (0.0-0.012); NRBC Pct Auto 0.0 /100WBC (0.0-0.2); Platelet Count 253 X10*3/uL (160-400); Red Blood Count 4.96 X10*6/uL (4.60-5.80); White Blood Count 16.2 X10*3/uL (4.8-10.8)
[2025-01-01 08:28] LABS: Alanine Aminotransferase 23 U/L (0-40); Albumin Level 4.4 g/dL (3.5-5.0); Alkaline Phosphatase 84 U/L (39-117); Anion Gap 11 (12-20); Aspartate Amino Transferase 22 U/L (5-37); Blood Urea Nitrogen 12 mg/dL (9-16); Calcium 9.0 mg/dL (8.4-10.2); Carbon Dioxide 29 mmol/L (22-29); Chloride 105 mmol/L (96-108); Creatinine Clr Calc Pharmacy 128.6; Estimated Glomerular Filt Rate > 60; Potassium 3.9 mmol/L (3.3-5.1); Sodium 141 mmol/L (135-145); Total Protein 7.1 g/dL (6.5-8.0)
--- NOTE | 2025-01-01 09:08 | ED.EXTPRO ---
HPI - Extremity Problem General Chief complaint: Extremity Problem Stated complaint: L ankle swollen sever pain Time Seen by Provider: 01/01/25 07:07 Source: patient Mode of arrival: wheelchair Limitations: no limitations History of Present Illness ED Provider: HPI Narrative: 44-year-old male with a history of gout last time 8 months ago, does not drink alcohol, no meat, does eat cheese, presenting with left ankle swelling for the past 2 days, no fevers or chills no trauma. Reportedly takes allopurinol. Related Data Home Medications ?Medication ?Instructions ?Recorded ?Confirmed allopurinol 100 mg tablet 100 mg PO DAILY 02/10/20 02/10/20 atorvastatin 20 mg tablet 20 mg PO BEDTIME 02/10/20 02/10/20 citalopram 20 mg tablet 20 mg PO DAILY 02/10/20 02/10/20 metoprolol succinate 25 mg 25 mg PO DAILY 02/10/20 02/10/20 tablet,extended release 24 hr oxycodone 10 mg tablet 10 mg PO DAILY PRN Pain 02/10/20 02/10/20 Previous Rx's ?Medication ?Instructions ?Recorded levofloxacin 500 mg tablet 500 mg PO Q24H #9 tabs 02/11/20 metronidazole 500 mg tablet 500 mg PO Q12H #18 tabs 02/11/20 (Flagyl) oxycodone 5 mg tablet 5 mg PO Q6H PRN pain #14 tabs 01/01/25 prednisone 20 mg tablet 40 mg (2 x 20 mg) PO DAILY 5 days 01/01/25 #10 tabs Allergies Allergy/AdvReac Type Severity Reaction Status Date / Time fish derived (FISH) Allergy Severe ANAPHYLAXIS Verified 01/01/25 07:09 Penicillins (PENICILLINS) Allergy Unknown ANAPHYLAXIS Verified 01/01/25 07:09 Review of Systems Constitutional: Constitutional: Reports as per HPI [facility] Past Medical History Medical History Arthritis Chronic pain Hyperlipidemia Hypertension Sleep disorder Tachycardia Social History Social History Household Members: Spouse and Children Housing: Apartment Do you presently have visiting nurse or other home services: No Cigarettes Per Day: 2 Years Smoked: yes Substance Use Type: Painkillers Advance Directives: Yes Advance Directives Information Provided: Yes Advance Directives on File: No service: No Current occupational status: unemployed Physical Exam Vital Signs: Vital Signs: Last Vital Signs Temp 98.6 F 01/01/25 07:08 Pulse 93 01/01/25 07:08 Resp 16 01/01/25 07:08 BP 143/68 H 01/01/25 07:08 Pulse Ox 97 01/01/25 07:08 O2 Del Method Room Air 01/01/25 07:08 BMI result Body Mass Index 30.4 Const: Other: Examination of left ankle reveals swelling no erythema distal pulses intact no deformity compartments are soft proximally distally full range of motion of the knee, Otherwise patient is alert and oriented x4, symmetric movements upper and lower extremities, no obvious cranial nerve deficits that are observable Medications Administered Discontinued Medications Generic Name Dose Route Start Last Admin Trade Name Freq PRN Reason Stop Dose Admin Oxycodone HCl 5 mg 01/01/25 07:43 01/01/25 07:54 Oxycodone Hcl Immed Release 5 Mg Tablet PO 01/01/25 07:44 5 mg ONCE ONE Administration Prednisone 60 mg 01/01/25 07:43 01/01/25 07:54 Prednisone 20 Mg Tablet PO 01/01/25 07:44 60 mg ONCE ONE Administration Medical Decision Making Medical Decision Making MDM Narrative: I had a discussion with the patient, based on my evaluation this is likely a gout flare, x-ray without calcifications to suspect pseudogout, we discussed arthrocentesis, at this time I do not feel that this is indicated and I have discussed with the patient why, I will start him on steroids, give it another 48-72 hours and he should be improving, see my return precautions, if he does return to the ER at that point I told him I will recommend arthrocentesis ( I am on next 3 days as well). His inflammatory markers and minimally elevated, leukocytosis is minimally high, these I expect to be so in the inflammatory condition. Differential Diagnosis Differential Diagnoses: The differential diagnosis associated with the presentation includes (Inflammatory joint, versus septic joint, versus trauma, deep space infection, arterial or venous insufficiency) Admission/Observation Consideration of admission/observation: Escalation of care including admission/observation considered 2022 Emergency Medicine Coding Guide from [email or web address] on 01/01/2025 All calculations should be rechecked by clinician prior to use RESULT SUMMARY: 4 Estimated Level of Service Problems: Moderate (4) Risk: Moderate (4) Data: Extensive (5) NARRATIVE MDM: This patient's problem complexity is Moderate as patient: with chronic illness(es) with exacerbation/progression/side effects of treatment. This patient's risk is Moderate due to: overall presentation requiring evaluation for a potentially Moderate-risk process. This patient's data complexity is Extensive due to: -multiple tests ordered -independent interpretation of imaging or EKG INPUTS: Number and Complexity ?> 3 = 4: chronic illness with exacerbation (c) Risk level ?> 3 = Moderate Tests ordered ?> 3 = >= Tests results reviewed (excluding labs) ?> 1 = 1 Prior external notes reviewed ?> 0 = 0 Assessment requiring and independent historian ?> 0 = No Independent interpretation of tests ?> 1 = Yes Discussed management/test interpretation w/external professional ?> 0 = No Lab Data MDM Lab Attestation statement: I reviewed the patient's lab results. 01/01/25 08:01 01/01/25 08:01 Labs: Lab Results 01/01/25 Range/Units 08:01 WBC 16.2 H (4.8-10.8) X10*3/uL RBC 4.96 (4.60-5.80) X10*6/uL Hgb 14.6 (14.0-18.0) g/dl Hct 43.2 (42.0-52.0) % MCV 87.1 (80.0-98.0) fL MCH 29.4 (27.0-33.0) pg MCHC 33.8 (31.0-36.0) g/dl RDW 13.5 (11.0-16.0) % Plt Count 253 (160-400) X10*3/uL MPV 10.9 (9.4-12.4) fL Immature Gran % (Auto) 0.6 H (0.0-0.4) % Neut % (Auto) 66.1 (45-73) % Lymph % (Auto) 21.6 (20-40) % [place] % (Auto) 8.5 (2-11) % Eos % (Auto) 2.7 (0-4) % Baso % (Auto) 0.5 (0-2) % Lymph # (Auto) 3.5 (1.2-4.9) X10*3/uL [place] # (Auto) 1.4 H (0.1-1.2) X10*3/uL Eos # (Auto) 0.4 (0.0-0.4) X10*3/uL Baso # (Auto) 0.1 (0.0-0.2) X10*3/uL Abs Immat Gran (auto) 0.09 H (0.00-0.03) X10*3/uL Absolute Neuts (auto) 10.7 H (2.0-8.3) x10*3/uL Absolute Nucleated RBC 0.000 (0.0-0.012) X10*3/uL Nucleated RBC % (auto) 0.0 (0.0-0.2) /100WBC ESR 10 (0-15) MM/HR Sodium 141 (135-145) mmol/L Potassium 3.9 (3.3-5.1) mmol/L Chloride 105 (96-108) mmol/L Carbon Dioxide 29 (22-29) mmol/L Anion Gap 11 L (12-20) BUN 12 (9-16) mg/dL Creatinine 1.02 (0.5-1.4) mg/dL Estim Creat Clear Calc 128.6 Estimated GFR > 60 Random Glucose 92 (60-115) mg/dL Calcium 9.0 (8.4-10.2) mg/dL Total Bilirubin 0.4 (0.0-1.0) mg/dL AST 22 (5-37) U/L ALT 23 (0-40) U/L Alkaline Phosphatase 84 (39-117) U/L C-Reactive Protein 3.59 H (< or = 0.50) mg/dL Total Protein 7.1 (6.5-8.0) g/dL Albumin 4.4 (3.5-5.0) g/dL Independent Interpretation I performed an independent interpretation of an: Plain X-Ray (No obvious deformity of the ankle, some soft tissue swelling, no fractures of the foot) Radiology Impression Discussion of test interpretation with radiology: I have reviewed the radiologist's reading. (Negative) Discharge Plan Discharge Clinical Impression: Gout flare, Gout Patient Disposition: Home, Self-Care Additional Instructions: Expect ankle to start improving in the next 48-72 hours, I am working mornings next 3 days, if you spike fevers the pain is getting worse despite steroids, elevation, ice Tylenol 975 mg every 6 hours for additional pain control, come back to the ER at that point I expect to perform arthrocentesis or obtaining joint fluid to make sure you do not have an infection though as we discussed based on my evaluation today I suspect this is a gout flare, I know he has been doing a good job avoiding alcohol and meat products, I recommend you cut down on cheese/dairy as well. If you feel better with my current regimen follow up with the PCP. Prescriptions: New oxycodone 5 mg tablet 5 mg PO Q6H PRN (Reason: pain) Qty: 14 0RF Rx Instructions: Partial Fill upon patient request. prednisone 20 mg tablet 40 mg PO DAILY 5 Days Qty: 10 0RF No Action atorvastatin 20 mg tablet 20 mg PO BEDTIME allopurinol 100 mg tablet 100 mg PO DAILY citalopram 20 mg tablet 20 mg PO DAILY metoprolol succinate 25 mg Tablet Extended Release 24 Hr 25 mg PO DAILY oxycodone 10 mg Tablet 10 mg PO DAILY PRN (Reason: Pain) levofloxacin 500 mg tablet 500 mg PO Q24H Qty: 9 0RF metronidazole [Flagyl] 500 mg tablet 500 mg PO Q12H Qty: 18 0RF Print Language: Persian
[2025-01-01 09:44] VITALS: BP 143/68; PULSE 93; RESP 16; TEMP 37; O2SAT 97
== END 2025-01-01 09:44 | disposition home or self-care (01) ==
PROVIDERS: Emergency Provider Emergency Medicine; PCP Internal Medicine
DX: M10.9 Gout, unspecified (principal); R60.0 Localized edema; I10 Essential (primary) hypertension
CPT/HCPCS: 36415; 73630; 80053; 85025; 85652; 86140; 99283

== ENCOUNTER → 2025-01-01 07:45 | Outpatient (BNV) | payer OTHER, SELFPAY | PROVIDERS: Emergency Provider Emergency Medicine; PCP Internal Medicine; Visit Provider Radiology Diagnostic Radiology | DX: M79.672 Pain in left foot (principal) | CPT/HCPCS: 73630 ==